=== PATIENT | male | born 1960 | race Caucasian/White ===

== ENCOUNTER 2018-06-22 18:41 | Emergency (ER) | payer BC, OTHER ==
[2018-06-22 19:05] VITALS: BP 153/83
--- NOTE | 2018-06-22 20:21 | UC ---
General HPI - HPI Summary HPI Summary: 58 y/o male with h/o anxiety c/o elevated blood pressure, has BP machine at home , increased readings > 170/> 100 today with palpitations, feeling anxious with last reading. Has had multiple elevated readings in past as well. has follow up with his primary this thurs for blood pressure checks. unsure if readings were accurate or if related to anxiety. mild headache at times, feeling like heart racing. h/o panic attacks. no other s/s FMH- father [place] age 50, F, M, HTN, P + M GF [place]'s in 50's - History of Current Complaint Chief Complaint: UCGeneralIllness Stated Complaint: HIGH BLOOD PRESSURE Time Seen by Provider: 06/22/18 20:02 Hx Obtained From: Patient Onset/Duration: Sudden Onset, Lasting Minutes, Resolved Onset Severity: Mild Current Severity: None Pain Intensity: 0 Associated Signs & Symptoms: Positive: Headache - Allergy/Home Medications Allergies/Adverse Reactions: Allergies Allergy/AdvReac Type Severity Reaction Status Date / Time Sulfa (Sulfonamide Allergy Rash Verified 06/22/18 19:05 Antibiotics) PMH/Surg Hx/FS Hx/Imm Hx Previously Healthy: Yes - anxiety - Surgical History Surgical History: Yes Surgery Procedure, Year, and Place: RIGHT SHOULDER 2002. DISECTOMY 1987 - Social History Alcohol Use: None Substance Use Type: None Smoking Status (MU): Never Smoked Tobacco Review of Systems All Other Systems Reviewed And Are Negative: Yes Neurological: Positive: Headache Is Patient Immunocompromised?: No Physical Exam Triage Information Reviewed: Yes Appearance: Well-Appearing, No Pain Distress, Well-Nourished Vital Signs: Initial Vital Signs Temp 98 F 06/22/18 18:54 Pulse 68 06/22/18 18:54 Resp 16 06/22/18 18:54 BP 153/83 06/22/18 18:54 Pulse Ox 100 06/22/18 18:54 Vital Signs Reviewed: Yes Eyes: Positive: Conjunctiva Clear Respiratory: Positive: Chest non-tender, Lungs clear, Normal breath sounds, No respiratory distress, No accessory muscle use. Negative: Crackles, Rhonchi, Stridor, Wheezing Cardiovascular: Positive: RRR, No Murmur, Pulses Normal Neurological Exam: Normal Psychological Exam: Normal Skin Exam: Normal Course/Dx - Course Course Of Treatment: BP machine checked from home- readings consistently ~ 20 higher than manual readings at . Recommended purchase new BP machine as current was 15 years + old, keep appt w , check BP at drug stores/ work. started on low dose TESHA, discussed HTN urgency/ emergency and symptoms to go to ER with - Diagnoses Provider Diagnosis: Elevated blood pressure reading Discharge - Sign-Out/Discharge Documenting (check all that apply): Patient Departure All imaging exams completed and their final reports reviewed: No Studies - Discharge Plan Condition: Good Disposition: HOME Prescriptions: Lisinopril [Lisinopril 2.5 MG-] 2.5 mg PO DAILY #10 tab Patient Education Materials: Hypertension (ED) Referrals: Andres Snow MD [Primary Care Provider] - Additional Instructions: - start lisinopril daily, stop if side effects - FOllow up with primary physician this week at scheduled appointment - Continue to monitor blood pressure, double check at other machines such at pharmacies - Billing Disposition and Condition Condition: GOOD Disposition: Home
== END 2018-06-22 20:52 | disposition home or self-care (01) ==
LOC: UCCORT 18:41
DX: R03.0 Elevated blood-pressure reading, without diagnosis of hypertension (principal); Z88.1 Allergy status to other antibiotic agents
CPT/HCPCS: 99212; G0463